=== PATIENT | female | born 1960 | race Caucasian/White ===

== ENCOUNTER 2017-08-15 15:16 | Emergency (ER) | payer MEDICAID ==
[~2017-08-15] VITALS: Ht 165.1 cm; Wt 88.0 kg
[~2017-08-15 15:16] MED LIST: AMIT50TA3 PO; ATOR40TA72; BUPR300T53 PO; DOCU100C33; GABA-532 PO; ONDA4TAB6 PO; PANT-47 PO; ROPI0.5T2 PO; TOPI100T18 PO
[2017-08-15] MEDS ORDERED: HYDROcodone/acetaminophen 10/325mg tab PO ONE (16:10)
[2017-08-15 16:21] VITALS: BP 157/111
== END 2017-08-15 16:26 | disposition home or self-care (01) ==
LOC: ER 15:17
DX: M79.662 Pain in left lower leg (principal); Z98.890 Other specified postprocedural states; Z88.6 Allergy status to analgesic agent; Z79.899 Other long term (current) drug therapy
CPT/HCPCS: 93971; 99284

== ENCOUNTER 2019-01-25 15:24 | Emergency (ER) | payer MEDICAID ==
[~2019-01-25] VITALS: Ht 167.6 cm; Wt 77.3 kg
[~2019-01-25 15:24] MED LIST changes: +TOP100T PO; -TOPI100T18 PO
[2019-01-25] MEDS ORDERED: normal saline 1000ml 1,000 ML IV ONE (16:50)
[2019-01-25] MEDS ORDERED: levetiracetam inj 1,500 MG in normal saline 100ml IV soln 85 ML IV ONE (16:50)
[2019-01-25] MEDS ORDERED: LevETIRAcetam 1,000MG in NORMAL SALINE 100ml IV.SOLN IV ONE (17:00)
[2019-01-25 17:20] LABS: BASOPHILS % (AUTO) 0.3 % (0-1); EOSINOPHILS # (AUTO) 0.1 X10'3 (0-0.9); EOSINOPHILS % (AUTO) 1.4 % (0-6); HEMATOCRIT 33.7 % (35.0-45.0); HEMOGLOBIN 11.6 g/dl (12.0-16.0); LYMPHOCYTES # (AUTO) 2.1 X10'3 (1.1-4.8); LYMPHOCYTES % (AUTO) 34.8 % (21-51); MEAN CORPUSCULAR HEMOGLOBIN 32.4 PG (27.0-31.0); MEAN CORPUSCULAR HGB CONC 34.3 g/dL (33.0-36.5); MEAN CORPUSCULAR VOLUME 94.3 FL (78-98); MONOCYTES # (AUTO) 0.4 X10'3 (0-0.9); MONOCYTES % (AUTO) 7.3 % (2-12); NEUTROPHILS # (AUTO) 3.4 X10'3 (1.8-7.7); NEUTROPHILS % (AUTO) 56.2 % (42-75); PLATELET COUNT 349 X10'3 (140-440); RED BLOOD COUNT 3.57 X10'6 (4.20-5.60); RED CELL DISTRIBUTION WIDTH 15.5 % (11.5-14.5)
[2019-01-25] MEDS ORDERED: LevETIRAcetam 500 MG in NORMAL SALINE 100ml IV.SOLN IV ONE (17:20)
[2019-01-25 17:37] LABS: ALANINE AMINOTRANSFERASE 33 U/L (12-78); ALBUMIN 3.4 G/DL (3.4-5.0); ALBUMIN/GLOBULIN RATIO 1.1 (1.1-1.5); ALKALINE PHOSPHATASE 186 IU/L (46-116); ANION GAP 10 (8-16); ASPARTATE AMINO TRANSFERASE 15 U/L (10-37); BILIRUBIN,TOTAL 0.2 MG/DL (0.1-1.0); BLOOD UREA NITROGEN 20 MG/DL (7-18); BUN/CREATININE RATIO 28.2 (6.6-38.0); CALCIUM 8.7 MG/DL (8.5-10.1); CHLORIDE 105 MMOL/L (99-107); CREATININE 0.71 MG/DL (0.40-0.90); GLUCOSE 107 MG/DL (70-104); MAGNESIUM 1.9 MG/DL (1.5-2.4); POTASSIUM 3.1 MMOL/L (3.5-5.1); SODIUM 142 MMOL/L (135-145); TOTAL CARBON DIOXIDE 26.6 MMOL/L (24-32); TOTAL PROTEIN 6.6 G/DL (6.4-8.2); eGFR 84 ML/MIN
[2019-01-25] MEDS ORDERED: potassium Cl 20 mEq SR tablet PO STA (17:50)
[2019-01-25] MEDS ORDERED: POTA20TA19 PO (17:52)
[2019-01-25] MEDS ORDERED: ketorolac trometh. 30mg/ml inj. IV ONE (18:05)
[2019-01-25 19:36] LABS: CLARITY,URINE CLEAR (Clear); COLOR,URINE YELLOW (Yellow); GLUCOSE, URINE NEGATIVE (Neg); KETONES,URINE NEGATIVE (Neg); LEUKOCYTE ESTERASE ,URINE SMALL (Neg); NITRITES, URINE NEGATIVE (Neg); OCCULT BLOOD,URINE NEGATIVE (Neg); PROTEIN,URINE NEGATIVE (Neg); UROBILINOGEN,URINE 0.2 E.U/dL (0.2-1.0)
[2019-01-25 19:37] LABS: UA COLLECTION TYPE NON-SPECIFIED
[2019-01-25 19:46] VITALS: BP 110/68
[2019-01-25 19:48] LABS: BACTERIA,URINE NONE SEEN /HPF (Neg); MUCUS STRANDS NONE SEEN /LPF (Neg); RBC,URINE NONE SEEN /HPF (0-2); SQUAMOUS EPITHELIAL CELL,UR NONE SEEN /LPF (FEW); WBC,URINE NONE SEEN /HPF (0-4)
--- NOTE | 2019-01-25 20:31 | NUR ---
Pts daughter at bedside. pt reports minimal relief from the toradol earlier for her ESTRADA. Encouraged to take Tylenol once home and stay hydrated. Prepared for Dc. Stable vs.
== END 2019-01-25 20:33 | disposition home or self-care (01) ==
LOC: ER 15:24
DX: R56.9 Unspecified convulsions (principal); Z98.890 Other specified postprocedural states; Z88.6 Allergy status to analgesic agent; Z79.899 Other long term (current) drug therapy
CPT/HCPCS: 36415; 80053; 81001; 83735; 85025; 87088; 96365; 96375; 96376; 99284; J1885; J1953; J7030

== ENCOUNTER 2019-03-09 10:37 | Emergency (ER) | payer MEDICAID ==
[~2019-03-09] VITALS: Ht 167.6 cm; Wt 65.9 kg
[2019-03-09 11:23] LABS: CLARITY,URINE SLIGHTLY CLOUDY (Clear); COLOR,URINE YELLOW (Yellow); GLUCOSE, URINE NEGATIVE (Neg); KETONES,URINE NEGATIVE (Neg); LEUKOCYTE ESTERASE ,URINE SMALL (Neg); NITRITES, URINE NEGATIVE (Neg); OCCULT BLOOD,URINE NEGATIVE (Neg); PROTEIN,URINE NEGATIVE (Neg); UA COLLECTION TYPE CLN CATCH MIDSTREAM; UROBILINOGEN,URINE 0.2 E.U/dL (0.2-1.0)
[2019-03-09 11:30] LABS: MUCUS STRANDS FEW /LPF (Neg); SQUAMOUS EPITHELIAL CELL,UR FEW /LPF (FEW)
[2019-03-09 11:32] LABS: RBC,URINE NONE SEEN /HPF (0-2)
[2019-03-09 11:34] LABS: AMORPHOUS PHOSPHATES 1+
[2019-03-09 11:35] LABS: BACTERIA,URINE FEW /HPF (Neg)
[2019-03-09 11:39] LABS: BASOPHILS % (AUTO) 0.2 % (0-1); EOSINOPHILS # (AUTO) 0.1 X10'3 (0-0.9); EOSINOPHILS % (AUTO) 1.9 % (0-6); HEMATOCRIT 37.9 % (35.0-45.0); HEMOGLOBIN 13.1 g/dl (12.0-16.0); LYMPHOCYTES # (AUTO) 1.9 X10'3 (1.1-4.8); LYMPHOCYTES % (AUTO) 31.3 % (21-51); MEAN CORPUSCULAR HEMOGLOBIN 33.1 PG (27.0-31.0); MEAN CORPUSCULAR HGB CONC 34.6 g/dL (33.0-36.5); MEAN CORPUSCULAR VOLUME 95.6 FL (78-98); MONOCYTES # (AUTO) 0.4 X10'3 (0-0.9); MONOCYTES % (AUTO) 6.1 % (2-12); NEUTROPHILS # (AUTO) 3.7 X10'3 (1.8-7.7); NEUTROPHILS % (AUTO) 60.5 % (42-75); PLATELET COUNT 336 X10'3 (140-440); RED BLOOD COUNT 3.96 X10'6 (4.20-5.60); RED CELL DISTRIBUTION WIDTH 15.8 % (11.5-14.5)
[2019-03-09] MEDS ORDERED: ondansetron/PF 4mg/2ml inj IV ONE (11:40)
[2019-03-09 11:54] LABS: ALANINE AMINOTRANSFERASE 54 U/L (12-78); ALBUMIN 3.8 G/DL (3.4-5.0); ALBUMIN/GLOBULIN RATIO 1.2 (1.1-1.5); ALKALINE PHOSPHATASE 118 IU/L (46-116); ANION GAP 10 (8-16); ASPARTATE AMINO TRANSFERASE 27 U/L (10-37); BILIRUBIN,TOTAL 0.5 MG/DL (0.1-1.0); BLOOD UREA NITROGEN 18 MG/DL (7-18); BUN/CREATININE RATIO 25.7 (6.6-38.0); CALCIUM 8.6 MG/DL (8.5-10.1); CHLORIDE 104 MMOL/L (99-107); GLUCOSE 93 MG/DL (70-104); LIPASE 116 U/L (73-393); POTASSIUM 3.7 MMOL/L (3.5-5.1); SODIUM 137 MMOL/L (135-145); TOTAL CARBON DIOXIDE 22.6 MMOL/L (24-32); eGFR 85 ML/MIN
[2019-03-09] MEDS: morphine 4 MG/ML inj SYRINge IV PRN ×2 (11:54→12:28)
[2019-03-09] MEDS ORDERED: LIDOcaine Viscous 15ml cup MM ONE (12:30)
[2019-03-09] MEDS ORDERED: mag hydrox/Alum hydrox/simeth 30ml oral suspension PO ONE (12:30)
[2019-03-09] MEDS ORDERED: famotidine 20mg tablet PO ONE (12:30)
[2019-03-09 12:41] VITALS: BP 126/81
[2019-03-09] MEDS ORDERED: SUCR1TAB34 PO (13:33)
== END 2019-03-09 13:47 | disposition home or self-care (01) ==
LOC: ER 10:38
DX: K29.70 Gastritis, unspecified, without bleeding (principal); Z86.69 Personal history of other diseases of the nervous system and sense organs; Z90.710 Acquired absence of both cervix and uterus; Z98.890 Other specified postprocedural states; Z88.8 Allergy status to other drugs, medicaments and biological substances; Z79.899 Other long term (current) drug therapy
CPT/HCPCS: 36415; 74176; 76700; 80053; 81001; 83690; 84484; 85025; 85610; 87088; 93005; 96374; 96375; 96376; 99284; J2270; J2405

== ENCOUNTER 2019-04-08 15:34 | Emergency (ER) | payer MEDICAID ==
[~2019-04-08] VITALS: Ht 167.6 cm; Wt 80.0 kg
[~2019-04-08 15:34] MED LIST changes: +SUCR1TAB34 PO
[2019-04-08 16:01] VITALS: BP 162/63
[2019-04-08] MEDS ORDERED: IBUP-1984 PO (18:04)
[2019-04-08] MEDS ORDERED: CYCL-1 PO (18:04)
[2019-04-08] MEDS ORDERED: traMADol 50MG tablet PO ONE (18:05)
[2019-04-08] MEDS ORDERED: ketorolac tromethamine 15mg/ml inj. IM ONE (18:05)
== END 2019-04-08 18:49 | disposition home or self-care (01) ==
LOC: ER 15:35
DX: M54.42 Lumbago with sciatica, left side (principal); M79.604 Pain in right leg; Z98.890 Other specified postprocedural states; Z90.710 Acquired absence of both cervix and uterus; Z88.8 Allergy status to other drugs, medicaments and biological substances; Z79.899 Other long term (current) drug therapy
CPT/HCPCS: 96372; 99284; J1885; 99283

== ENCOUNTER 2019-08-14 12:38 | Emergency (ER) | payer MEDICAID ==
[~2019-08-14] VITALS: Ht 167.6 cm; Wt 81.5 kg
[~2019-08-14 12:38] MED LIST changes: +CYCL-1 PO; -ROPI0.5T2 PO; +ROPI0.5T4 PO
[2019-08-14] MEDS ORDERED: LIDOcaine 1%/PF 5ML 10 MG/ML VIAL SQ ONE (13:45)
[2019-08-14 14:16] VITALS: BP 150/80
== END 2019-08-14 14:17 | disposition home or self-care (01) ==
LOC: ER 12:39
DX: S01.511A Laceration without foreign body of lip, initial encounter (principal); Z86.69 Personal history of other diseases of the nervous system and sense organs; Z90.710 Acquired absence of both cervix and uterus; V89.2XXA Person injured in unspecified motor-vehicle accident, traffic, initial encounter; Y93.89 Activity, other specified; Y92.89 Other specified places as the place of occurrence of the external cause; Y99.8 Other external cause status
CPT/HCPCS: 12011; 99282; 99283

== ENCOUNTER 2019-08-19 14:57 | Emergency (ER) | payer MEDICAID ==
[~2019-08-19] VITALS: Ht 162.6 cm; Wt 81.2 kg
[2019-08-19] MEDS ORDERED: ketorolac tromethamine 15mg/ml inj. IM ONE (16:15)
[2019-08-19] MEDS ORDERED: HYDR-3965 PO (16:45)
[2019-08-19 17:17] VITALS: BP 146/92
== END 2019-08-19 17:20 | disposition home or self-care (01) ==
LOC: ER 14:57
DX: S40.011A Contusion of right shoulder, initial encounter (principal); S20.211A Contusion of right front wall of thorax, initial encounter; Z90.710 Acquired absence of both cervix and uterus; Z98.890 Other specified postprocedural states; Z88.6 Allergy status to analgesic agent; Z79.899 Other long term (current) drug therapy; V49.59XA Passenger injured in collision with other motor vehicles in traffic accident, initial encounter; Y93.89 Activity, other specified; Y92.413 State road as the place of occurrence of the external cause; Y99.9 Unspecified external cause status
CPT/HCPCS: 73030; 96372; 99283; J1885

== ENCOUNTER 2020-03-08 15:10 | Emergency (ER) | payer MEDICAID ==
[~2020-03-08] VITALS: Ht 167.6 cm; Wt 85.9 kg
[2020-03-08 15:20] VITALS: BP 192/110
[2020-03-08 16:10] LABS: BASOPHILS # (AUTO) 0.1 X10'3 (0-0.2); BASOPHILS % (AUTO) 1.5 % (0-1); EOSINOPHILS # (AUTO) 0.2 X10'3 (0-0.9); EOSINOPHILS % (AUTO) 2.4 % (0-6); HEMATOCRIT 35.1 % (35.0-45.0); HEMOGLOBIN 12.2 g/dl (12.0-16.0); LYMPHOCYTES # (AUTO) 2.5 X10'3 (1.1-4.8); LYMPHOCYTES % (AUTO) 26.7 % (21-51); MEAN CORPUSCULAR HEMOGLOBIN 32.8 PG (27.0-31.0); MEAN CORPUSCULAR HGB CONC 34.7 g/dL (33.0-36.5); MEAN CORPUSCULAR VOLUME 94.6 FL (78-98); MEAN PLATELET VOLUME 7.5 FL (7.4-10.4); MONOCYTES # (AUTO) 0.5 X10'3 (0-0.9); MONOCYTES % (AUTO) 5.1 % (2-12); NEUTROPHILS % (AUTO) 64.3 % (42-75); PLATELET COUNT 373 X10'3 (140-440); RED BLOOD COUNT 3.71 X10'6 (4.20-5.60); RED CELL DISTRIBUTION WIDTH 14.7 % (11.5-14.5); WHITE BLOOD COUNT 9.3 X10'3 (4.5-11.0)
[2020-03-08 16:24] LABS: ALANINE AMINOTRANSFERASE 31 U/L (12-78); ALBUMIN 3.9 G/DL (3.4-5.0); ALBUMIN/GLOBULIN RATIO 1.1 (1.1-1.5); ALKALINE PHOSPHATASE 153 IU/L (46-116); ANION GAP 10 (8-16); ASPARTATE AMINO TRANSFERASE 22 U/L (10-37); BILIRUBIN,TOTAL 0.3 MG/DL (0.1-1.0); BLOOD UREA NITROGEN 16 MG/DL (7-18); BUN/CREATININE RATIO 17.2 (6.6-38.0); CALCIUM 9.1 MG/DL (8.5-10.1); CHLORIDE 108 MMOL/L (99-107); CREATININE 0.93 MG/DL (0.40-0.90); GLUCOSE 102 MG/DL (70-104); POTASSIUM 3.9 MMOL/L (3.5-5.1); SODIUM 142 MMOL/L (135-145); TOTAL CARBON DIOXIDE 24.3 MMOL/L (24-32); TOTAL PROTEIN 7.4 G/DL (6.4-8.2); eGFR 61 ML/MIN
== END 2020-03-08 17:51 | disposition home or self-care (01) ==
LOC: ER 15:10
DX: J06.9 Acute upper respiratory infection, unspecified (principal); Z88.6 Allergy status to analgesic agent; Z79.899 Other long term (current) drug therapy; Z20.828 Contact with and (suspected) exposure to other viral communicable diseases
CPT/HCPCS: 36415; 71045; 80053; 83880; 84484; 85025; 87635; 93005; 99285

== ENCOUNTER 2024-06-28 09:04 | Emergency (ER) | payer MEDICARE, MEDICAID ==
[~2024-06-28] VITALS: Ht 162.6 cm; Wt 94.7 kg
[~2024-06-28 09:04] MED LIST changes: +ROPI0.5T37 PO; -ROPI0.5T4 PO
[2024-06-28] MEDS ORDERED: ACET-1015 PO (10:15)
[2024-06-28] MEDS ORDERED: IBUP-1984 PO (10:15)
[2024-06-28] MEDS ORDERED: ALBU8HFA PO (10:15)
[2024-06-28 10:33] VITALS: BP 134/80; PULSE 82; RESP 16; TEMP 98.5; O2SAT 96
== END 2024-06-28 10:34 | disposition home or self-care (01) ==
LOC: ER 09:04
DX: J22 Unspecified acute lower respiratory infection (principal); J45.909 Unspecified asthma, uncomplicated; Z88.6 Allergy status to analgesic agent; Z79.899 Other long term (current) drug therapy; Z90.710 Acquired absence of both cervix and uterus
CPT/HCPCS: 71046; 99283

== ENCOUNTER 2024-08-01 08:02 | Emergency (ER) | payer MEDICARE, MEDICAID ==
[~2024-08-01] VITALS: Ht 167.6 cm; Wt 64.4 kg
[2024-08-01 08:30] LABS: BASOPHILS % (AUTO) 0.2 % (0-1); EOSINOPHILS % (AUTO) 0.4 % (0-6); HEMATOCRIT 35.1 % (35.0-45.0); HEMOGLOBIN 12.1 g/dl (12.0-16.0); LYMPHOCYTES # (AUTO) 0.9 X10'3 (1.1-4.8); LYMPHOCYTES % (AUTO) 11.5 % (21-51); MEAN CORPUSCULAR HGB CONC 34.5 g/dL (33.0-36.5); MEAN CORPUSCULAR VOLUME 92.7 FL (78-98); MEAN PLATELET VOLUME 6.9 FL (7.4-10.4); MONOCYTES # (AUTO) 0.3 X10'3 (0-0.9); MONOCYTES % (AUTO) 3.8 % (2-12); NEUTROPHILS # (AUTO) 6.7 X10'3 (1.8-7.7); NEUTROPHILS % (AUTO) 84.1 % (42-75); PLATELET COUNT 325 X10'3 (140-440); RED BLOOD COUNT 3.78 X10'6 (4.20-5.60); RED CELL DISTRIBUTION WIDTH 15.3 % (11.5-14.5)
--- NOTE | 2024-08-01 08:37 | Physician Documentation ---
History of Present Illness ~ Chief Complaint: Abdominal Pain w/vomiting Stated Complaint: N/V/ABD PAIN Time Seen by MD: 08:07 [facility]: EMS HPI 63-year-old female presenting with nausea and vomiting that has been ongoing for the past couple of days. Patient states that she started feeling a little bit sick yesterday after eating some chicken nuggets at the [employer]. Today she woke up with severe nausea and vomited on several occasions. She states that she has not been able to keep any fluids or solids down. Additionally she states that she has had some watery diarrhea on a couple of occasions. She endorses some epigastric pain but states that it is not severe. She denies any fever, chills. States that her legs have been a little bit more swollen than usual and that she is also slightly short of breath. Patient denies any other medical issues at this time but states that many years ago she was on Lasix because of swelling in her legs. She also has a history of heavy alcohol use but states that she has not drank heavily in the last five years and quit completely about a year ago. Medication Reconciliation Allergies: Coded Allergies: aspirin (Verified Allergy, Unknown, dizzy, 06/28/24) Scheduled Amitriptyline Hcl (Amitriptyline Hcl), 1 TAB PO HS, (Reported) Atorvastatin Calcium (Atorvastatin Calcium), HS, (Reported) Bupropion HCl (Wellbutrin Xl), 1 TAB PO DAILY, (Reported) Docusate Sodium (Dok), Q12H PRN, (Reported) Gabapentin (Gabapentin), 1 CAP PO TID, (Reported) Ondansetron Hcl (Zofran), 1 TAB PO Q8H Pantoprazole Sodium (PROTONIX tablet), 40 MG PO Q24H, (Reported) Ropinirole Hcl (Ropinirole Hcl), 0.5 MG PO HS, (Reported) Sucralfate (Carafate), 1 TAB PO Q6H Topiramate (Topamax), 100 MG PO HS, (Reported) Scheduled PRN Cyclobenzaprine* (Cyclobenzaprine*), 1 TABLET PO Q8H PRN for muscle spasms Discontinued Medications albuterol inhaler (Pro-Air Inhaler), 1-2 PUFFS PO Q4H PRN for shortness of breath Discontinued Reason: Auto Discontinued Past Medical History Past Medical History: Seizures, Syncope, Asthma Past Surgical History: hysterectomy, orthopedic surgeries Alcohol Use: None Drug Use: none Lives with: Family Lives In: Home Occupation: employed Review of Systems All Other Systems at this time: Reviewed and Negative Physical Exam Vital Signs: Temperature: 98.6, Source: Oral, Heart Rate: 79, Respiratory Rate: 20, BP: 148/87, Pulse Oximetry: 100, Weight: 64.410 Oxygen Flow Rate: 0 Physical Exam I have reviewed the triage vitals. CONST: Well developed and well nourished. In no acute distress HENT: Head Atraumatic EYES: Pupils are equal, round and reactive to light. Normal conjunctiva NECK: Normal range of motion. Supple. CARDIO: Normal rate and regular rhythm. No murmurs, rubs, or gallops. S1, S2. PULM/CHEST: No respiratory distress. Lungs clear to auscultation. No wheeze ABD: Soft. Mild epigastric tenderness to palpation. Nondistended. Bowel sounds normal. No guarding. : Exam deferred MSK: No deformity. 1+ pitting edema bilateral lower extremities. NEURO: Alert and oriented to person, place and time. Moving all extremities SKIN: Warm and dry. PSYCH: Normal mood and affect. Good eye contact. Progress Results/Orders Results/Orders Orders - JACOB FLORES MD Chest,Single View (08/01/24 08:22) Completed Orders - JACOB FLORES MD Hcg, Ur Ql (08/01/24 08:06) Cbc/Diff (08/01/24 08:06) BMP (08/01/24 08:06) Lipase (08/01/24 08:06) CMP (08/01/24 08:06) Hs Troponin I W Calculations (08/01/24 08:13) MG (08/01/24 08:06) Normal Saline 1000ml (Sodium Chloride 10 (08/01/24 08:25) Ondansetron Inj. (Zofran 4mg/2ml Vial) (08/01/24 08:25) Chest,Single View (08/01/24 08:22) Electrocardiogram (08/01/24 08:13) Potassium Cl Sr Tablet (K-Dur Tablet) (08/01/24 10:33) Metoclopramide Inj (Reglan Inj) (08/01/24 10:40) Ketorolac Trometh 15mg/Ml Vial (Toradol (08/01/24 10:40) Ua W/Microscopic, Cult If Ind (08/01/24 10:36) Medications Received in ER Medications (Trade) Dose Ordered Sig/Son Route PRN Reason Start Time Stop Time Status Last Admin Dose Admin Sodium Chloride 1,000 ml @ 1,000 mls/hr ONCE ONCE IV 08/01/24 08:25 08/01/24 09:24 DC 08/01/24 08:39 1,000 MLS/HR (Zofran 4mg/2ml vial) 4 mg ONCE ONCE IV 08/01/24 08:25 08/01/24 08:31 DC 08/01/24 08:39 4 MG (K-DUR tablet) 20 meq ONCE STAT PO 08/01/24 10:33 08/01/24 10:40 DC 08/01/24 11:01 20 MEQ (Reglan inj) 10 mg ONCE ONCE IV 08/01/24 10:40 08/01/24 10:41 DC 08/01/24 11:01 10 MG (Toradol injection) 15 mg ONCE ONCE IV 08/01/24 10:40 08/01/24 10:41 DC 08/01/24 11:00 15 MG Vital Signs 08/01/24 08/01/24 08/01/24 08/01/24 08:06 08:11 09:30 10:14 Temp 98.6 98.6 98.6 Pulse 79 67 78 Resp 20 13 17 B/P (MAP) 148/87 142/81 (101) 160/81 (107) Pulse Ox 100 99 97 O2 Flow Rate 0 0 0 08/01/24 08/01/24 11:00 11:04 Temp 98.6 Pulse 76 Resp 15 16 B/P (MAP) 152/88 (109) Pulse Ox 99 O2 Flow Rate 0 Laboratory Tests Test 08/01/24 08:20 08/01/24 10:36 White Blood Count 8.0 Red Blood Count 3.78 L Hemoglobin 12.1 Hematocrit 35.1 Mean Corpuscular Volume 92.7 Mean Corpuscular Hemoglobin 32.0 H Mean Corpuscular Hemoglobin Concent 34.5 Red Cell Distribution Width 15.3 H Platelet Count 325 Mean Platelet Volume 6.9 L Neutrophils (%) (Auto) 84.1 H Lymphocytes (%) (Auto) 11.5 L Monocytes (%) (Auto) 3.8 Eosinophils (%) (Auto) 0.4 Basophils (%) (Auto) 0.2 Neutrophils # (Auto) 6.7 Lymphocytes # (Auto) 0.9 L Monocytes # (Auto) 0.3 Eosinophils # (Auto) 0.0 Basophils # (Auto) 0.0 CBC Comment Sodium Level 132 L Potassium Level 3.4 L Chloride Level 101 Carbon Dioxide Level 21.9 L Anion Gap 9 Blood Urea Nitrogen 17 Creatinine 0.81 Estimated GFR/1.73 m2 71 BUN/Creatinine Ratio 21.0 H Glucose Level 104 Calcium Level 8.1 L Magnesium Level 2.0 Total Bilirubin 1.0 Aspartate Amino Transf (AST/SGOT) 26 Alanine Aminotransferase (ALT/SGPT) 33 Alkaline Phosphatase 146 H Troponin I High Sensitivity 7 Total Protein 6.7 Albumin 3.7 Globulin 3.0 Albumin/Globulin Ratio 1.2 Lipase 24 Chemistry Comments Urine Specimen Description Cln catch midstream Urine Color Yellow Urine Clarity Slightly cloudy Urine pH 6.5 Urine Specific [place] 1.015 Urine Protein Trace Urine Glucose (UA) Negative Urine Ketones Negative Urine Occult Blood Trace-intact Urine Nitrite Negative Urine Bilirubin Negative Urine Urobilinogen 0.2 Urine Leukocyte Esterase Small H Urine RBC 3-10 Urine WBC 0-4 Urine Squamous Epithelial Cells Moderate Urine Bacteria 4+ Urine Mucus Few Urine Culture Indicated Not ind Volume Urine Centrifuged 10 ml Urine HCG, Qualitative Negative Urine Comment EKG/XRAY/CT/US/VASC/MRI EKG : Additional Comment EKG interpreted by SARINA Flores shows normal sinus rhythm at a rate of 81 normal axis, no MD intervals. No ischemia Chest X-Ray : Additional Comments EXAM: DI CHEST,SINGLE VIEW Indication: SOB Technique: Single frontal view of the chest was obtained Comparison: CHEST,SINGLE VIEW on DOS: 03/08/20 FINDINGS: Lines and Tubes: None Lungs: No focal consolidation. Pleura: No effusion. No pneumothorax. Cardiomediastinal contours: Unremarkable Bones: No acute osseous abnormality. IMPRESSION: No acute cardiopulmonary disease. Medical Decision Making Additional Comments 63-year-old female presenting with what appears to be viral gastroenteritis. Patient's lab work is grossly unremarkable. Patient was given 1 L of IV normal saline as well as 4 mg of IV ondansetron and 10 mg of IV metoclopramide. She was also given 15 mg of IV ketorolac for headache. After medication the patient was markedly improved. She was able to hold down fluids and had no further issues with nausea or vomiting. Given that she has a history of exposure to a food-borne illness in her place of residence I suspect this is most likely viral in nature and should resolve on its own. I advised her to drink plenty of fluids and monitor symptoms for improvement. She was prescribed ondansetron ODT to take as needed for nausea. Advised to follow up with her PCP and return to the ED with any acutely worsening symptoms. Departure Disposition: HOME / SELF CARE / HOMELESS Impression: Primary Impression: Acute gastroenteritis Condition: Improved Discharge Instructions: Viral Gastroenteritis, Adult, [id number] Additional Instructions: Take medication as prescribed as needed for nausea. Ensure you are drinking plenty of fluids. Monitor symptoms for improvement and resolution. Follow up with your primary care physician in the next 1-2 weeks. Return to the emergency department with any worsening symptoms. Referrals: NO PRIMARY CARE PROVIDER (PCP) Prescriptions ONDANSETRON ODT 4mg tablet (ONDANSETRON ODT) 4 Mg Tab.rapdis 1 TAB PO Q6H PRN PRN for nausea/vomiting for 4 Days, #16 TAB 0 Refills Prov: JACOB FLORES MD 08/01/24 Signature Scribe Signature: 1 Attestation: 1 JACOB FLORES MD Aug 01, 2024 08:37
[2024-08-01] MEDS: ondansetron/PF 4mg/2ml inj IV ONE (08:39)
[2024-08-01] MEDS: normal saline 1000ml 1,000 ML IV ONE (08:39)
[2024-08-01 08:43] LABS: ALANINE AMINOTRANSFERASE 33 U/L (12-78); ALBUMIN 3.7 G/DL (3.4-5.0); ALBUMIN/GLOBULIN RATIO 1.2 (1.1-1.5); ALKALINE PHOSPHATASE 146 IU/L (46-116); ANION GAP 9 (8-16); ASPARTATE AMINO TRANSFERASE 26 U/L (10-37); BLOOD UREA NITROGEN 17 MG/DL (7-18); CALCIUM 8.1 MG/DL (8.5-10.1); CHLORIDE 101 MMOL/L (99-107); CREATININE 0.81 MG/DL (0.40-0.90); GLUCOSE 104 MG/DL (70-104); LIPASE 24 U/L (16-77); POTASSIUM 3.4 MMOL/L (3.5-5.1); SODIUM 132 MMOL/L (135-145); TOTAL CARBON DIOXIDE 21.9 MMOL/L (24-32); TOTAL PROTEIN 6.7 G/DL (6.4-8.2); eCRCL 65 ML/MIN; eGFR 71 ML/MIN
--- NOTE | 2024-08-01 08:58 | RADIOLOGY REPORT ---
EXAM: DI CHEST,SINGLE VIEW Indication: SOB Technique: Single frontal view of the chest was obtained Comparison: CHEST,SINGLE VIEW on DOS: 03/08/20 FINDINGS: Lines and Tubes: None Lungs: No focal consolidation. Pleura: No effusion. No pneumothorax. Cardiomediastinal contours: Unremarkable Bones: No acute osseous abnormality. IMPRESSION: No acute cardiopulmonary disease.
--- NOTE | 2024-08-01 09:29 | ELECTROCARDIOGRAPH REPORT ---
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 Ronaldo Fuentes Measurements Intervals [place] Rate: 81 P: 43 MA: 152 QRS: 65 QRSD: 99 T: -66 QT: 375 QTc: 436 Interpretive Statements Sinus rhythm RSR' in V1 or V2, probably normal variant Nonspecific repol abnormality, diffuse leads Electronically Signed On 08-01-2024 18:18:[address] Ronaldo Fuentes Please click the below link to view image of tracing.
[2024-08-01] MEDS: ketorolac trometh 15mg/ml vial 15 MG/ML ML IV ONE (11:00)
[2024-08-01 11:01] LABS: URINE HCG NEGATIVE (NEG)
[2024-08-01] MEDS: potassium Cl 20 mEq SR tablet PO STA (11:01)
[2024-08-01] MEDS: metoclopramide 5 mg/ml inj IV ONE (11:01)
[2024-08-01 11:02] LABS: BILIRUBIN,URINE NEGATIVE (Neg); CLARITY,URINE SLIGHTLY CLOUDY (Clear); COLOR,URINE YELLOW (Yellow); GLUCOSE, URINE NEGATIVE (Neg); KETONES,URINE NEGATIVE (Neg); LEUKOCYTE ESTERASE ,URINE SMALL (Neg); NITRITES, URINE NEGATIVE (Neg); OCCULT BLOOD,URINE TRACE-INTACT (Neg); PH,URINE 6.5 (4.8-8.0); PROTEIN,URINE TRACE mg/dl (Neg); UROBILINOGEN,URINE 0.2 E.U/dL (0.2-1.0)
[2024-08-01 11:03] LABS: UA COLLECTION TYPE CLN CATCH MIDSTREAM
[2024-08-01 11:12] LABS: BACTERIA,URINE 4+ /HPF (Neg); MUCUS STRANDS FEW /LPF (Neg); SQUAMOUS EPITHELIAL CELL,UR MODERATE /LPF (FEW); WBC,URINE 0-4 /HPF (0-4)
[2024-08-01] MEDS ORDERED: ONDA-243 PO (12:21)
[2024-08-01 12:39] VITALS: BP 141/91; PULSE 67; RESP 18; TEMP 98.6; O2SAT 95
== END 2024-08-01 12:41 | disposition home or self-care (01) ==
LOC: ER 08:02
DX: K52.9 Noninfective gastroenteritis and colitis, unspecified (principal); R60.0 Localized edema; R06.02 Shortness of breath; R10.13 Epigastric pain; J45.909 Unspecified asthma, uncomplicated; Z88.6 Allergy status to analgesic agent; Z88.8 Allergy status to other drugs, medicaments and biological substances; Z90.710 Acquired absence of both cervix and uterus
CPT/HCPCS: 36415; 71045; 80053; 81001; 81025; 83690; 83735; 84484; 85025; 87088; 93005; 96361; 96374; 96375; 99285; J1885; J2405; J2765; J7030

== ENCOUNTER 2024-09-07 14:39 | Emergency (ER) | payer MEDICARE, MEDICAID ==
[~2024-09-07] VITALS: Ht 266.7 cm; Wt 95.8 kg
[~2024-09-07 14:39] MED LIST changes: +ONDA-243 PO
[2024-09-07 14:47] VITALS: BP 179/93; PULSE 78; RESP 16; TEMP 98; O2SAT 95
== END 2024-09-07 16:44 | disposition left against medical advice (07) ==
LOC: ER 14:40
DX: I10 Essential (primary) hypertension (principal); Z88.6 Allergy status to analgesic agent; Z53.21 Procedure and treatment not carried out due to patient leaving prior to being seen by health care provider